=== PATIENT | male | born 1935 | race Caucasian/White ===

== ENCOUNTER 2018-07-16 07:57 | Inpatient (IN) ==
[2018-07-09 16:29] LABS: Basophils # 0.1 10*3/uL (0.0-0.2); Basophils % 0.7 % (0.0-0.8); Eosinophils % 0.5 % (0.00-10.9); Hematocrit 33.1 VOL% (42.0-52.0); Hemoglobin 9.7 GM/DL (14.0-18.0); Immature Granulocytes % 0.3 %; Immature Granulocytes Absolute 0.02 #; Lymphocytes % 13.7 % (21.2-54.2); Mean Corpuscular HGB Conc 29.3 GM/DL (32-36); Mean Corpuscular Hemoglobin 29 PG (27-34); Mean Corpuscular Volume 99.4 FL (87-102); Monocytes # 0.8 10*3/uL (0.11-0.8); Neutrophils # 5.7 10*3/uL (1.4-7.4); Neutrophils % 74.8 % (38.7-73.9); Platelet Count 143 T/CUMM (130-400); Red Blood Count 3.33 MC/CUMM (3.8-5.5); Red Cell Distribution Width 16.2 % (9.3-17.3); White Blood Count 7.6 T/CUMM (4-12)
[2018-07-09 16:48] LABS: Albumin 3.9 G/DL (3.4-5.0); Bilirubin,Total 0.4 MG/DL (0.2-1.0); Calcium 8.8 MG/DL (8.5-10.1); Osmolality,Calculated 292.1 MOS/KG (273-304); Potassium 4.9 MMOL/L (3.5-5.1); Total Protein 7.4 G/DL (6.4-8.3)
[~2018-07-16 07:57] MED LIST: DIAZEPAM 5 MG TABLET PO ONE; FAMOTIDINE 20 MG TABLET PO ONE; VANCOMYCIN INJ 1,000 MG in SODIUM CHLORIDE 0.9% 250 ML IV ONE
[2018-07-16] MEDS ORDERED: VANCOMYCIN 1,000 MG VIAL ONE (08:46)
[2018-07-16] MEDS ORDERED: DIAZEPAM 5 MG TABLET ONE (08:46)
[2018-07-16 08:47] LABS: INR 1.2; PT Patient Result 12.7 SECS
[2018-07-16] MEDS ORDERED: FAMOTIDINE 20 MG TABLET ONE (09:14)
[2018-07-16] MEDS ORDERED: VANCOMYCIN 500 MG VIAL ONE (10:01)
[2018-07-16] MEDS ORDERED: THROMBIN TOPICAL (RECOMBINANT) 5,000 UNIT VIAL TOP ONE (10:01)
[2018-07-16] MEDS ORDERED: LIDOCAINE 1% 20 ML VIAL ONE (10:01)
[2018-07-16] MEDS ORDERED: SPRAY APPLICATOR KIT 1 EACH MISC ONE (10:01)
[2018-07-16] MEDS ORDERED: HEPARIN 5,000 UNIT/1 ML VIAL ONE (10:01)
[2018-07-16] MEDS ORDERED: LIDOCAINE 2% TOP JELLY 20 ML VIAL INTRAURETH ONE (10:02)
[2018-07-16] MEDS ORDERED: TISSUE ADHESIVE 1 EACH APPLICATOR TOP ONE (10:02)
[2018-07-16] MEDS ORDERED: PROPOFOL 200 MG/20 ML VIAL IV ONE (15:00)
[2018-07-16] MEDS ORDERED: SEVOFLURANE 1 UNIT/15 MINUTE INH ONE (15:00)
[2018-07-16] MEDS ORDERED: fentaNYL 100 MCG/2 ML VIAL ONE (15:00)
[2018-07-16] MEDS ORDERED: HEPARIN 10,000 UNIT/10 ML VIAL ONE (15:00)
[2018-07-16] MEDS ORDERED: ePHEDrine 50 MG/ML AMP ONE (15:00)
[2018-07-16] MEDS ORDERED: LACTATED RINGERS 1,000 ML IV ONE (15:01)
[2018-07-16] MEDS ORDERED: ONDANSETRON 4 MG/2 ML VIAL ONE (15:01)
[2018-07-16] MEDS ORDERED: ETOMIDATE 40 MG/20 ML VIAL IV ONE (15:01)
[2018-07-16] MEDS ORDERED: ROCURONIUM 100 MG/10 ML VIAL IV ONE (15:01)
[2018-07-16] MEDS ORDERED: GLYCOPYRROLATE 0.4 MG/2 ML VIAL ONE (15:01)
[2018-07-16 16:43] LABS: Hematocrit 25.1 VOL% (42.0-52.0); Hemoglobin 7.8 GM/DL (14.0-18.0)
[2018-07-16 17:05] LABS: Calcium 6.9 MG/DL (8.5-10.1); Osmolality,Calculated 289.1 MOS/KG (273-304); Potassium 4.4 MMOL/L (3.5-5.1)
[2018-07-16] MEDS: MAGNESIUM CHLORIDE 64 MG TABLET PO SCH (20:55)
[2018-07-16] MEDS: traZODone 50 MG TABLET PO SCH (20:55)
[2018-07-16] MEDS: ASPIRIN EC 81 MG TABLET PO SCH (20:55)
[2018-07-16] MEDS ORDERED: TERAZOSIN 1 MG CAPSULE PO SCH (21:00)
[2018-07-16] MEDS: NIACIN ER 500 MG TABLET PO SCH (22:28)
[2018-07-16] MEDS: WARFARIN 5 MG TABLET PO SCH (22:36)
[2018-07-16] MEDS: LACTATED RINGERS 1,000 ML IV SCH (22:38)
[2018-07-17 05:32] LABS: Osmolality,Calculated 285.4 MOS/KG (273-304); Potassium 4.5 MMOL/L (3.5-5.1)
[2018-07-17 05:40] LABS: INR 1.1
[2018-07-17 06:02] LABS: Hematocrit 25.1 VOL% (42.0-52.0); Hemoglobin 7.7 GM/DL (14.0-18.0)
[2018-07-17] MEDS ORDERED: ASPIRIN CHEW 81 MG TABLET PO SCH (09:00)
[2018-07-17] MEDS: LOSARTAN 50 MG TABLET PO SCH (09:52)
[2018-07-17] MEDS: GLIMEPIRIDE 2 MG TABLET PO SCH (09:52)
[2018-07-17] MEDS: FEXOFENADINE 180 MG TABLET PO SCH (09:53)
[2018-07-17] MEDS: POTASSIUM CHLORIDE 20 MEQ TABLET PO SCH (09:53)
[2018-07-17] MEDS: FUROSEMIDE 40 MG TABLET PO SCH (09:53)
[2018-07-17] MEDS: LACTATED RINGERS 1,000 ML IV SCH ×3 (09:53→11:16)
[2018-07-17] MEDS: SIMVASTATIN 20 MG TABLET PO SCH (09:53)
[2018-07-17] MEDS: ENOXAPARIN 30 MG/0.3 ML SYRINGE SUBCUT SCH ×2 (09:53→20:43)
[2018-07-17] MEDS: MAGNESIUM CHLORIDE 64 MG TABLET PO SCH ×2 (09:54→20:43)
[2018-07-17] MEDS: DILTIAZEM CD 180 MG CAPSULE PO SCH (11:49)
[2018-07-17] MEDS: WARFARIN 5 MG TABLET PO SCH (17:22)
[2018-07-17] MEDS ORDERED: TAMSULOSIN 0.4 MG CAPSULE PO SCH ×2 (17:34→21:00)
[2018-07-17] MEDS: ASPIRIN EC 81 MG TABLET PO SCH (20:43)
[2018-07-17] MEDS: traZODone 50 MG TABLET PO SCH (20:43)
[2018-07-17] MEDS: NIACIN ER 500 MG TABLET PO SCH (21:11)
[2018-07-17] MEDS: HYDROmorphone 2 MG/1 ML VIAL IV PRN (21:11)
[2018-07-17] MEDS: ONDANSETRON 4 MG/2 ML VIAL IV PRN (21:12)
[2018-07-18 05:32] LABS: Basophils % 0.4 % (0.0-0.8); Eosinophils # 0.1 10*3/uL (0.0-0.87); Eosinophils % 1.6 % (0.00-10.9); Hemoglobin 7.2 GM/DL (14.0-18.0); Immature Granulocytes % 0.4 %; Immature Granulocytes Absolute 0.03 #; Lymphocytes % 13.8 % (21.2-54.2); Mean Corpuscular Hemoglobin 30 PG (27-34); Mean Corpuscular Volume 98.8 FL (87-102); Mean Platelet Volume 10.8 FL (9.6-12.0); Monocytes # 1.1 10*3/uL (0.11-0.8); Monocytes % 15.4 % (1.7-12.7); Neutrophils # 4.8 10*3/uL (1.4-7.4); Neutrophils % 68.4 % (38.7-73.9); Platelet Count 109 T/CUMM (130-400); Red Blood Count 2.43 MC/CUMM (3.8-5.5); Red Cell Distribution Width 16.9 % (9.3-17.3)
[2018-07-18] MEDS: FEXOFENADINE 180 MG TABLET PO SCH (08:18)
[2018-07-18] MEDS: LOSARTAN 50 MG TABLET PO SCH (08:18)
[2018-07-18] MEDS: FUROSEMIDE 40 MG TABLET PO SCH (08:18)
[2018-07-18] MEDS: POTASSIUM CHLORIDE 20 MEQ TABLET PO SCH (08:18)
[2018-07-18] MEDS: MAGNESIUM CHLORIDE 64 MG TABLET PO SCH ×2 (08:18→21:13)
[2018-07-18] MEDS: SIMVASTATIN 20 MG TABLET PO SCH (08:18)
[2018-07-18] MEDS: GLIMEPIRIDE 2 MG TABLET PO SCH (08:18)
[2018-07-18] MEDS: ENOXAPARIN 30 MG/0.3 ML SYRINGE SUBCUT SCH ×2 (08:19→21:13)
[2018-07-18] MEDS ORDERED: MULTIVITAMIN (INTRINSIC) CAPSULE PO SCH (09:00)
[2018-07-18] MEDS: MULTIVITAMIN (INTRINSIC) CAPSULE PO SCH ×2 (09:45→21:14)
[2018-07-18] MEDS: DILTIAZEM CD 180 MG CAPSULE PO SCH (12:00)
[2018-07-18] MEDS: WARFARIN 5 MG TABLET PO SCH (18:14)
[2018-07-18] MEDS: NIACIN ER 500 MG TABLET PO SCH (21:13)
[2018-07-18] MEDS: traZODone 50 MG TABLET PO SCH (21:14)
[2018-07-18] MEDS: ASPIRIN EC 81 MG TABLET PO SCH (21:14)
[2018-07-18] MEDS: TAMSULOSIN 0.4 MG CAPSULE PO SCH (21:14)
[2018-07-18] MEDS: HYDROmorphone 2 MG/1 ML VIAL IV PRN (21:16)
[2018-07-18] MEDS: ONDANSETRON 4 MG/2 ML VIAL IV PRN (21:17)
[2018-07-19 05:55] LABS: PT Patient Result 11.3 SECS
[2018-07-19] MEDS: POTASSIUM CHLORIDE 20 MEQ TABLET PO SCH (08:29)
[2018-07-19] MEDS: GLIMEPIRIDE 2 MG TABLET PO SCH (08:29)
[2018-07-19] MEDS: TAMSULOSIN 0.4 MG CAPSULE PO SCH ×2 (08:30→21:50)
[2018-07-19] MEDS: FEXOFENADINE 180 MG TABLET PO SCH (08:30)
[2018-07-19] MEDS: LOSARTAN 50 MG TABLET PO SCH (08:30)
[2018-07-19] MEDS: MAGNESIUM CHLORIDE 64 MG TABLET PO SCH ×2 (08:30→21:49)
[2018-07-19] MEDS: SIMVASTATIN 20 MG TABLET PO SCH (08:30)
[2018-07-19] MEDS: FUROSEMIDE 40 MG TABLET PO SCH (08:30)
[2018-07-19] MEDS: MULTIVITAMIN (INTRINSIC) CAPSULE PO SCH ×2 (08:32→21:50)
[2018-07-19] MEDS ORDERED: BISACODYL 5 MG TABLET PO PRN (09:56)
[2018-07-19] MEDS: ENOXAPARIN 30 MG/0.3 ML SYRINGE SUBCUT SCH ×2 (09:59→21:52)
[2018-07-19] MEDS: MAGNESIUM HYDROXIDE SUSP 30 ML UDCUP PO PRN ×2 (10:00→21:56)
[2018-07-19] MEDS ORDERED: BISACODYL 10 MG SUPP RECTAL PRN (11:55)
[2018-07-19] MEDS: DILTIAZEM CD 180 MG CAPSULE PO SCH (12:50)
[2018-07-19] MEDS: WARFARIN 5 MG TABLET PO SCH (17:10)
[2018-07-19] MEDS: ASPIRIN EC 81 MG TABLET PO SCH (21:50)
[2018-07-19] MEDS: traZODone 50 MG TABLET PO SCH (21:50)
[2018-07-19] MEDS: NIACIN ER 500 MG TABLET PO SCH (21:50)
[2018-07-20] MEDS: MULTIVITAMIN (INTRINSIC) CAPSULE PO SCH ×2 (09:20→20:51)
[2018-07-20] MEDS: SIMVASTATIN 20 MG TABLET PO SCH (09:20)
[2018-07-20] MEDS: MAGNESIUM CHLORIDE 64 MG TABLET PO SCH ×2 (09:20→20:51)
[2018-07-20] MEDS: POTASSIUM CHLORIDE 20 MEQ TABLET PO SCH (09:20)
[2018-07-20] MEDS: FEXOFENADINE 180 MG TABLET PO SCH (09:21)
[2018-07-20] MEDS: TAMSULOSIN 0.4 MG CAPSULE PO SCH ×2 (09:21→20:51)
[2018-07-20] MEDS: GLIMEPIRIDE 2 MG TABLET PO SCH (09:21)
[2018-07-20] MEDS: FUROSEMIDE 40 MG TABLET PO SCH (09:21)
[2018-07-20] MEDS: ENOXAPARIN 30 MG/0.3 ML SYRINGE SUBCUT SCH ×2 (09:21→20:51)
[2018-07-20] MEDS: LOSARTAN 50 MG TABLET PO SCH (09:21)
[2018-07-20] MEDS ORDERED: TUBERCULIN SKIN TEST 0.1 ML SYRINGE INTRADERM ONE (09:58)
[2018-07-20] MEDS: DILTIAZEM CD 180 MG CAPSULE PO SCH (13:53)
[2018-07-20] MEDS: WARFARIN 5 MG TABLET PO SCH (17:49)
[2018-07-20] MEDS: ASPIRIN EC 81 MG TABLET PO SCH (20:51)
[2018-07-20] MEDS: NIACIN ER 500 MG TABLET PO SCH (20:51)
[2018-07-20] MEDS: traZODone 50 MG TABLET PO SCH (20:51)
[2018-07-21] MEDS: POTASSIUM CHLORIDE 20 MEQ TABLET PO SCH (09:02)
[2018-07-21] MEDS: GLIMEPIRIDE 2 MG TABLET PO SCH (09:03)
[2018-07-21] MEDS: LOSARTAN 50 MG TABLET PO SCH (09:03)
[2018-07-21] MEDS: FUROSEMIDE 40 MG TABLET PO SCH (09:03)
[2018-07-21] MEDS: SIMVASTATIN 20 MG TABLET PO SCH (09:03)
[2018-07-21] MEDS: FEXOFENADINE 180 MG TABLET PO SCH (09:03)
[2018-07-21] MEDS: MAGNESIUM CHLORIDE 64 MG TABLET PO SCH (09:03)
[2018-07-21] MEDS: TAMSULOSIN 0.4 MG CAPSULE PO SCH (09:04)
[2018-07-21] MEDS: MULTIVITAMIN (INTRINSIC) CAPSULE PO SCH (09:07)
[2018-07-21] MEDS: ENOXAPARIN 30 MG/0.3 ML SYRINGE SUBCUT SCH (09:07)
[2018-07-21 12:08] VITALS: BP 138/62
[2018-07-21] MEDS: DILTIAZEM CD 180 MG CAPSULE PO SCH (13:52)
== END 2018-07-21 13:27 | disposition home health service (06) | DRG 253 ==
LOC: N.SDSINP 07:57 → N.4E 15:38
PROVIDERS: ADMIT Surgery; ATTEND Surgery

== ENCOUNTER 2019-04-27 15:35 | Inpatient (IN) ==
[2019-04-27] MEDS ORDERED: ALBUTEROL 2.5 MG/3 ML NEB RESP TX PRN (18:16)
[2019-04-27] MEDS ORDERED: BISACODYL 5 MG TABLET PO PRN (18:33)
[2019-04-27 18:40] LABS: Basophils % 0.5 % (0.0-0.8); Eosinophils % 0.3 % (0.00-10.9); Hematocrit 27.7 VOL% (42.0-52.0); Hemoglobin 8.4 GM/DL (14.0-18.0); Immature Granulocytes % 1.2 %; Lymphocytes # 0.8 10*3/uL (1.4-4.0); Mean Corpuscular HGB Conc 30.3 GM/DL (32-36); Mean Corpuscular Volume 93.6 FL (87-102); Mean Platelet Volume 10.2 FL (9.6-12.0); Platelet Count 155 T/CUMM (130-400); Red Blood Count 2.96 MC/CUMM (3.8-5.5); Red Cell Distribution Width 15.1 % (9.3-17.3); White Blood Count 8.7 T/CUMM (4-12)
[2019-04-27] MEDS ORDERED: ZALEPLON 5 MG CAPSULE PO PRN (18:42)
[2019-04-27] MEDS ORDERED: MORPHINE 4 MG/1 ML VIAL IV PRN (18:42)
[2019-04-27] MEDS ORDERED: ACETAMINOPHEN 325 MG TABLET PO PRN (18:42)
[2019-04-27] MEDS ORDERED: guaiFENesin/DM ER 600-30 MG TABLET PO PRN (18:42)
[2019-04-27] MEDS ORDERED: diphenhydrAMINE CAP 25 MG CAPSULE PO PRN (18:42)
[2019-04-27] MEDS ORDERED: ONDANSETRON 4 MG/2 ML VIAL IV PRN (18:42)
[2019-04-27] MEDS ORDERED: DOCUSATE SODIUM 100 MG CAPSULE PO PRN (18:42)
[2019-04-27] MEDS ORDERED: GLUCAGON 1 MG VIAL IM PRN (18:42)
[2019-04-27] MEDS ORDERED: DEXTROSE 10% 250 ML BAG IV PRN (18:42)
[2019-04-27] MEDS ORDERED: hydrALAZINE 20 MG/1 ML VIAL IV PRN (18:46)
[2019-04-27 18:52] LABS: INR 1.2; PT Patient Result 13.4 SECS (9.6-12.2)
[2019-04-27 18:56] LABS: Calcium 8.2 MG/DL (8.5-10.1); Osmolality,Calculated 291.5 MOS/KG (273-304)
[2019-04-27] MEDS ORDERED: FUROSEMIDE 40 MG/4 ML VIAL IV SCH (19:00)
[2019-04-27 19:42] LABS: ABG Base Excess -5.4 MMOL/L (-2.5-2.5); ABG HCO3 19.8 MMOL/L (20-26); ABG Oxygen Saturation 87.6 % (95-100); ABG PCO2 31.6 MM HG (35-48); ABG PH 7.386 (7.35-7.45); ABG PO2 54.4 MM HG (80-95); ABG TCO2 17.8 MMOL/L (23-27)
[2019-04-27] MEDS ORDERED: ENOXAPARIN 120 MG/0.8 ML SYRINGE SUBCUT ONE (21:00)
[2019-04-27] MEDS: ASPIRIN EC 81 MG TABLET PO SCH (21:27)
[2019-04-27] MEDS: WARFARIN 5 MG TABLET PO SCH (21:27)
[2019-04-27] MEDS: MAGNESIUM CHLORIDE 64 MG TABLET PO SCH (21:28)
[2019-04-27] MEDS: traZODone 50 MG TABLET PO SCH (21:28)
[2019-04-27] MEDS: TERAZOSIN 1 MG CAPSULE PO SCH (21:28)
[2019-04-28 04:40] LABS: Basophils # 0.1 10*3/uL (0.0-0.2); Eosinophils # 0.1 10*3/uL (0.0-0.87); Eosinophils % 2.2 % (0.00-10.9); Hematocrit 25.8 VOL% (42.0-52.0); Hemoglobin 7.9 GM/DL (14.0-18.0); Immature Granulocytes % 0.3 %; Immature Granulocytes Absolute 0.02 #; Lymphocytes % 17.6 % (21.2-54.2); Mean Corpuscular HGB Conc 30.6 GM/DL (32-36); Mean Corpuscular Volume 92.5 FL (87-102); Mean Platelet Volume 10.4 FL (9.6-12.0); Monocytes % 11.8 % (1.7-12.7); Neutrophils % 67.1 % (38.7-73.9); Platelet Count 138 T/CUMM (130-400); Red Blood Count 2.79 MC/CUMM (3.8-5.5); Red Cell Distribution Width 15.1 % (9.3-17.3); White Blood Count 5.9 T/CUMM (4-12)
[2019-04-28 04:45] LABS: INR 1.3; PT Patient Result 13.8 SECS (9.6-12.2)
[2019-04-28 05:59] LABS: Calcium 8.4 MG/DL (8.5-10.1); Osmolality,Calculated 288.3 MOS/KG (273-304)
[2019-04-28 06:04] LABS: Basophils % 0.7 % (0.0-0.8); Eosinophils # 0.1 10*3/uL (0.0-0.87); Eosinophils % 1.6 % (0.00-10.9); Hematocrit 25.4 VOL% (42.0-52.0); Hemoglobin 7.9 GM/DL (14.0-18.0); Immature Granulocytes % 1.4 %; Immature Granulocytes Absolute 0.08 #; Lymphocytes # 0.8 10*3/uL (1.4-4.0); Lymphocytes % 13.6 % (21.2-54.2); Mean Corpuscular HGB Conc 31.1 GM/DL (32-36); Mean Corpuscular Volume 92.7 FL (87-102); Mean Platelet Volume 9.8 FL (9.6-12.0); Monocytes % 11.6 % (1.7-12.7); Neutrophils % 71.1 % (38.7-73.9); Platelet Count 135 T/CUMM (130-400); Red Blood Count 2.74 MC/CUMM (3.8-5.5); Red Cell Distribution Width 15.3 % (9.3-17.3); White Blood Count 5.5 T/CUMM (4-12)
[2019-04-28] MEDS: LEVOTHYROXINE 75 MCG TABLET PO SCH (06:42)
[2019-04-28 07:00] LABS: Folate 17.6 NG/ML (5.4-24.0); Vitamin B12 228 PG/ML (211-911)
[2019-04-28] MEDS ORDERED: GLUCAGON 1 MG VIAL IM PRN (07:27)
[2019-04-28] MEDS ORDERED: DEXTROSE 50% 25 GM/50 ML VIAL IV PRN (07:27)
[2019-04-28 08:38] LABS: Sedimentation Rate-Westergren 58 MM/HR (0-20)
[2019-04-28] MEDS: INSULIN REGULAR 100 UNIT/ML SUBCUT SCH ×4 (09:18→21:08)
[2019-04-28] MEDS: FUROSEMIDE 40 MG/4 ML VIAL IV SCH ×2 (09:19→17:04)
[2019-04-28] MEDS: CYANOCOBALAMIN 1000 MCG/1 ML VIAL IM SCH (09:20)
[2019-04-28] MEDS: MAGNESIUM CHLORIDE 64 MG TABLET PO SCH ×2 (09:20→21:08)
[2019-04-28] MEDS: FEXOFENADINE 180 MG TABLET PO SCH (09:20)
[2019-04-28] MEDS: PANTOPRAZOLE 40 MG TABLET PO SCH (09:20)
[2019-04-28] MEDS: DILTIAZEM CD 180 MG CAPSULE PO SCH (13:02)
[2019-04-28] MEDS: SIMVASTATIN 20 MG TABLET PO SCH (13:02)
[2019-04-28 15:46] LABS: % Iron Saturation 6.3 % (18-50)
[2019-04-28] MEDS: WARFARIN 5 MG TABLET PO SCH (17:04)
[2019-04-28 17:35] LABS: Apearance,Urine CLEAR (Clear); Bacteria,Urine Occasional /HPF (Few); Bilirubin,Urine Negative (Negative); Blood, Urine Negative (Negative); Glucose,Urine (UA) Negative (Negative); Ketones,Urine Negative (Negative); Mucus,Urine Occasional /LPF (Occasional); Nitrite,Urine Negative (Negative); Protein,Urine Negative; RBC,Urine <1 /HPF (0-4); Urine Color Straw (Yellow); Urine Specific Gravity 1.006 (1.001-1.035); Urine Urobilinogen < 2.0 EU/DL (0.2-1.0); WBC,Urine <1 /HPF (0-6)
[2019-04-28] MEDS: ASPIRIN EC 81 MG TABLET PO SCH (21:07)
[2019-04-28] MEDS: TERAZOSIN 1 MG CAPSULE PO SCH (21:07)
[2019-04-28] MEDS: traZODone 50 MG TABLET PO SCH (21:07)
[2019-04-29 05:24] LABS: INR 1.1; PT Patient Result 12.4 SECS (9.6-12.2)
[2019-04-29] MEDS: LEVOTHYROXINE 75 MCG TABLET PO SCH (06:15)
[2019-04-29] MEDS: INSULIN REGULAR 100 UNIT/ML SUBCUT SCH ×2 (08:08→12:16)
[2019-04-29] MEDS: FEXOFENADINE 180 MG TABLET PO SCH (08:53)
[2019-04-29] MEDS: PANTOPRAZOLE 40 MG TABLET PO SCH (08:53)
[2019-04-29] MEDS: MAGNESIUM CHLORIDE 64 MG TABLET PO SCH (08:53)
[2019-04-29] MEDS: FUROSEMIDE 40 MG/4 ML VIAL IV SCH (08:54)
[2019-04-29] MEDS: CYANOCOBALAMIN 1000 MCG/1 ML VIAL IM SCH (08:54)
[2019-04-29] MEDS ORDERED: LOPERAMIDE 2 MG CAPSULE PO ONE (09:50)
[2019-04-29 09:58] LABS: Hemoglobin A1 (Alkaline) 97.2 % (96.5-98.5); Hemoglobin A2 (Alkaline) 2.8 % (1.5-3.5)
[2019-04-29] MEDS ORDERED: carvediloL 3.125 MG TABLET PO SCH (10:23)
[2019-04-29 11:46] LABS: Calcium 8.5 MG/DL (8.5-10.1); Osmolality,Calculated 291.7 MOS/KG (273-304)
[2019-04-29] MEDS: DILTIAZEM CD 180 MG CAPSULE PO SCH (12:15)
[2019-04-29 12:16] VITALS: BP 168/69
[2019-04-29] MEDS: SIMVASTATIN 20 MG TABLET PO SCH (12:16)
== END 2019-04-29 13:55 | disposition home or self-care (01) | DRG 291 ==
LOC: N.TELEN → SUATTDRO 18:42
PROVIDERS: ADMIT Internal Medicine; ATTEND Internal Medicine